=== PATIENT | female | born 1975 | race African-American/Black ===

== ENCOUNTER 2019-02-03 00:22 | Inpatient (IN) ==
[2019-02-03] MEDS ORDERED: SODIUM CHLORIDE 0.9% 1,000 ML IV STA ×2 (00:27→01:51)
[2019-02-03 00:41] LABS: Basophils % 0.5 % (0.0-0.8); Eosinophils # 0.1 10*3/uL (0.0-0.87); Eosinophils % 2.1 % (0.00-10.9); Hematocrit 34.6 VOL% (35.7-47.0); Immature Granulocytes % 1.1 %; Immature Granulocytes Absolute 0.04 #; Lymphocytes # 1.3 10*3/uL (1.4-4.0); Lymphocytes % 35.4 % (21.3-54.2); Mean Corpuscular HGB Conc 31.8 GM/DL (32-36); Mean Corpuscular Volume 98.3 FL (87-102); Monocytes % 12.3 % (1.7-12.7); Neutrophils % 48.6 % (38.7-73.9); Platelet Count 234 T/CUMM (130-400); Red Blood Count 3.52 MC/CUMM (3.8-5.5); Red Cell Distribution Width 13.3 % (9.3-17.3); White Blood Count 3.7 T/CUMM (4-12)
[2019-02-03] MEDS ORDERED: ONDANSETRON 4 MG/2 ML VIAL IV ONE (00:59)
[2019-02-03] MEDS ORDERED: MORPHINE 4 MG/1 ML VIAL IV STA (00:59)
[2019-02-03 01:07] LABS: Platelet Estimate Normal
[2019-02-03 01:09] LABS: Alanine Aminotransferase 18 U/L (13-56); Albumin 3.4 G/DL (3.4-5.0); Alkaline Phosphatase 28 U/L (45-117); Aspartate Amino Transferase 19 U/L (0-37); Blood Urea Nitrogen 14 MG/DL (7-18); Calcium 8.4 MG/DL (8.5-10.1); Glucose 88 MG/DL (74-106); Osmolality,Calculated 280.3 MOS/KG (273-304)
[2019-02-03] MEDS ORDERED: DIPHTHERIA/TETANUS ADULT VACCINE 0.5 ML SYRINGE IM ONE (02:35)
[2019-02-03] MEDS ORDERED: DIPH/TET/ACEL PERT BOOSTER VACCINE 0.5 ML VIAL IM ONE (02:36)
[2019-02-03 02:41] LABS: Apearance,Urine CLEAR (Clear); Bilirubin,Urine Negative (Negative); Blood, Urine Negative (Negative); Glucose,Urine (UA) Negative (Negative); Ketones,Urine 5 mg/dL (Negative); Mucus,Urine Occasional /LPF (Occasional); Nitrite,Urine Negative (Negative); Protein,Urine 30 MG/DL; RBC,Urine 1 /HPF (0-4); Squamous Epithelial Cell,Urine Occasional /HPF (0-10); Urine Color Yellow (Yellow); Urine Specific Gravity > 1.060 (1.001-1.035); Urine Urobilinogen < 2.0 EU/DL (0.2-1.0); WBC,Urine 1 /HPF (0-6)
[2019-02-03 02:57] LABS: Barbiturates Screen,Urine Negative (Negative); Benzodiazepines Screen,Urine Negative (Negative); Cannabinoid Screen,Urine Negative (Negative); Opiate Screen,Urine Positive (Negative); Phencyclidine Screen,Urine Negative (Negative)
[2019-02-03] MEDS ORDERED: SUGAMMADEX 200 MG/2 ML VIAL IV ONE (03:40)
[2019-02-03] MEDS ORDERED: ONDANSETRON 4 MG/2 ML VIAL IV PRN (03:56)
[2019-02-03] MEDS ORDERED: ACETAMINOPHEN 325 MG TABLET PO PRN (03:56)
[2019-02-03] MEDS ORDERED: PROPOFOL 200 MG/20 ML VIAL IV ONE (04:13)
[2019-02-03] MEDS ORDERED: DESFLURANE 1 UNIT/15 MINUTE INH ONE (04:14)
[2019-02-03] MEDS ORDERED: PHENYLEPHRINE 1 MG/10 ML SYRINGE IV ONE (04:14)
[2019-02-03] MEDS: MORPHINE 4 MG/1 ML VIAL IV PRN ×5 (04:14→20:39)
[2019-02-03] MEDS ORDERED: ROCURONIUM 100 MG/10 ML VIAL IV ONE (04:14)
[2019-02-03] MEDS: PIPERACILLIN/TAZOBACTAM 3,375 MG in SODIUM CHLORIDE 0.9% 100 ML IV SCH ×3 (04:14→20:39)
[2019-02-03] MEDS ORDERED: fentaNYL 100 MCG/2 ML VIAL ONE (04:14)
[2019-02-03] MEDS ORDERED: SUCCINYLCHOLINE 200 MG/10 ML VIAL ONE (04:14)
[2019-02-03] MEDS: LACTATED RINGERS 1,000 ML IV SCH ×3 (04:14→20:39)
[2019-02-03] MEDS ORDERED: LACTATED RINGERS 1,000 ML IV ONE (04:14)
[2019-02-03 05:59] LABS: Calcium 7.9 MG/DL (8.5-10.1); Osmolality,Calculated 277.4 MOS/KG (273-304)
[2019-02-03] MEDS: PANTOPRAZOLE 40 MG TABLET PO SCH (11:08)
[2019-02-04] MEDS: LACTATED RINGERS 1,000 ML IV SCH ×3 (02:48→11:00)
[2019-02-04] MEDS: PIPERACILLIN/TAZOBACTAM 3,375 MG in SODIUM CHLORIDE 0.9% 100 ML IV SCH ×3 (03:50→19:34)
[2019-02-04] MEDS: PANTOPRAZOLE 40 MG TABLET PO SCH (08:32)
[2019-02-04] MEDS: DEXTROSE 5% NACL 0.45% 1,000 ML IV SCH (14:15)
[2019-02-05] MEDS: DEXTROSE 5% NACL 0.45% 1,000 ML IV SCH ×3 (03:02→20:49)
[2019-02-05] MEDS: PIPERACILLIN/TAZOBACTAM 3,375 MG in SODIUM CHLORIDE 0.9% 100 ML IV SCH ×3 (03:33→20:25)
[2019-02-05 05:28] LABS: Basophils % 0.2 % (0.0-0.8); Eosinophils # 0.1 10*3/uL (0.0-0.87); Eosinophils % 2.9 % (0.00-10.9); Hematocrit 33.7 VOL% (35.7-47.0); Hemoglobin 10.9 GM/DL (12.0-16.0); Immature Granulocytes % 0.5 %; Immature Granulocytes Absolute 0.02 #; Lymphocytes # 0.6 10*3/uL (1.4-4.0); Lymphocytes % 13.9 % (21.3-54.2); Mean Corpuscular HGB Conc 32.3 GM/DL (32-36); Mean Platelet Volume 10.5 FL (9.6-12.0); Neutrophils % 73.5 % (38.7-73.9); Platelet Count 230 T/CUMM (130-400); Red Blood Count 3.44 MC/CUMM (3.8-5.5); Red Cell Distribution Width 13.4 % (9.3-17.3); White Blood Count 4.1 T/CUMM (4-12)
[2019-02-05 05:54] LABS: Albumin 2.3 G/DL (3.4-5.0); Bilirubin,Total 0.5 MG/DL (0.2-1.0); Calcium 8.4 MG/DL (8.5-10.1); Osmolality,Calculated 276.4 MOS/KG (273-304); Total Protein 5.9 G/DL (6.4-8.3)
[2019-02-05] MEDS: PANTOPRAZOLE 40 MG TABLET PO SCH (08:25)
[2019-02-05] MEDS: MORPHINE 4 MG/1 ML VIAL IV PRN ×2 (11:08→20:26)
[2019-02-06] MEDS: DEXTROSE 5% NACL 0.45% 1,000 ML IV SCH ×2 (05:00→06:08)
[2019-02-06] MEDS: MORPHINE 4 MG/1 ML VIAL IV PRN (05:03)
[2019-02-06] MEDS: PIPERACILLIN/TAZOBACTAM 3,375 MG in SODIUM CHLORIDE 0.9% 100 ML IV SCH ×3 (05:05→20:49)
[2019-02-06] MEDS: PANTOPRAZOLE 40 MG TABLET PO SCH (08:45)
[2019-02-07] MEDS: PIPERACILLIN/TAZOBACTAM 3,375 MG in SODIUM CHLORIDE 0.9% 100 ML IV SCH ×2 (03:58→12:00)
[2019-02-07 05:24] LABS: Basophils % 0.3 % (0.0-0.8); Eosinophils # 0.2 10*3/uL (0.0-0.87); Eosinophils % 5.6 % (0.00-10.9); Hematocrit 32.1 VOL% (35.7-47.0); Hemoglobin 10.5 GM/DL (12.0-16.0); Immature Granulocytes % 0.3 %; Immature Granulocytes Absolute 0.01 #; Lymphocytes # 0.9 10*3/uL (1.4-4.0); Lymphocytes % 29.1 % (21.3-54.2); Mean Corpuscular HGB Conc 32.7 GM/DL (32-36); Mean Corpuscular Volume 97.3 FL (87-102); Mean Platelet Volume 10.5 FL (9.6-12.0); Monocytes % 11.8 % (1.7-12.7); Neutrophils % 52.9 % (38.7-73.9); Platelet Count 237 T/CUMM (130-400); Red Cell Distribution Width 13.2 % (9.3-17.3); White Blood Count 3.1 T/CUMM (4-12)
[2019-02-07 05:46] LABS: Calcium 8.3 MG/DL (8.5-10.1); Osmolality,Calculated 275.4 MOS/KG (273-304)
[2019-02-07] MEDS: PANTOPRAZOLE 40 MG TABLET PO SCH (09:04)
[2019-02-07 11:10] VITALS: BP 120/78
== END 2019-02-07 12:00 | disposition home or self-care (01) | DRG 329 ==
LOC: N.ED 00:22 → N.ICU 02:41 → N.3E 02-04 17:25
PROVIDERS: ADMIT Surgery; ATTEND Surgery